=== PATIENT | female | born 1955 | race Caucasian/White ===

== ENCOUNTER 2024-02-20 09:51 | Day surgery (SDC) | payer MEDICARE ==
[2024-02-20] VITALS (9 sets, daily range): BP systolic 96–127; BP diastolic 60–84; PULSE 57–78; RESP 10–22; TEMP 98.2; O2SAT 94–98
[~2024-02-20] VITALS: Ht 162.6 cm; Wt 80.3 kg
[2024-02-20] MEDS ORDERED: diphenhydrAMINE 25mg capsule PO PRN (10:15)
[2024-02-20] MEDS ORDERED: CHOL20004 PO (10:19)
[2024-02-20] MEDS ORDERED: LISI1TAB49 PO (10:19)
[2024-02-20] MEDS ORDERED: ASPI-611 PO (10:19)
[2024-02-20] MEDS ORDERED: CITA20TA16 PO (10:19)
[2024-02-20] MEDS ORDERED: LEVO50TA8 PO (10:19)
[2024-02-20 10:55] LABS: BASOPHILS % (AUTO) 0.6 % (0-1); EOSINOPHILS # (AUTO) 0.2 X10'3 (0-0.9); EOSINOPHILS % (AUTO) 3.2 % (0-6); HEMATOCRIT 40.2 % (35.0-45.0); HEMOGLOBIN 13.8 g/dl (12.0-16.0); LYMPHOCYTES # (AUTO) 2.3 X10'3 (1.1-4.8); LYMPHOCYTES % (AUTO) 33.2 % (21-51); MEAN CORPUSCULAR HEMOGLOBIN 29.5 PG (27.0-31.0); MEAN CORPUSCULAR HGB CONC 34.3 g/dL (33.0-36.5); MEAN CORPUSCULAR VOLUME 86.2 FL (78-98); MEAN PLATELET VOLUME 7.4 FL (7.4-10.4); MONOCYTES # (AUTO) 0.5 X10'3 (0-0.9); MONOCYTES % (AUTO) 7.6 % (2-12); NEUTROPHILS # (AUTO) 3.8 X10'3 (1.8-7.7); NEUTROPHILS % (AUTO) 55.4 % (42-75); PLATELET COUNT 264 X10'3 (140-440); RED BLOOD COUNT 4.67 X10'6 (4.20-5.60); RED CELL DISTRIBUTION WIDTH 13.1 % (11.5-14.5); WHITE BLOOD COUNT 6.8 X10'3 (4.5-11.0)
[2024-02-20 11:05] LABS: ALBUMIN 3.7 G/DL (3.4-5.0); ANION GAP 9 (8-16); BLOOD UREA NITROGEN 15 MG/DL (7-18); BUN/CREATININE RATIO 25.9 (10.0-20.0); CALCIUM 9.3 MG/DL (8.5-10.1); CHLORIDE 105 MMOL/L (99-107); CREATININE 0.58 MG/DL (0.40-0.90); GLUCOSE 86 MG/DL (70-104); POTASSIUM 3.4 MMOL/L (3.5-5.1); SODIUM 141 MMOL/L (135-145); TOTAL CARBON DIOXIDE 26.9 MMOL/L (24-32); eCRCL 81 ML/MIN; eGFR > 90 ML/MIN
[2024-02-20 11:08] LABS: APTT 26 SECONDS (22-32); PROTHROMBIN TIME 10.9 SECONDS (9.0-12.0)
[2024-02-20] MEDS: normal saline 1,000 ML IV SCH (12:03)
[2024-02-20] MEDS: LORazepam 0.5 MG tablet PO PRN (12:03)
[2024-02-20] MEDS ORDERED: LIDOcaine 1% (10mg/ml) 2ml vial ONE (13:02)
[2024-02-20] MEDS ORDERED: fentaNYL/PF 50MCG/1 ML 2ML syringe ONE (13:02)
[2024-02-20] MEDS ORDERED: midazolam 1 mg/ML 2ml injection ONE (13:02)
[2024-02-20] MEDS ORDERED: verapamil 2.5 mg/ml inj IV ONE (13:02)
[2024-02-20] MEDS ORDERED: iohexol 350MG/ML 100ml bottle IV ONE (13:03)
[2024-02-20] MEDS ORDERED: heparin 1,000unit/ml 10ml vial 10 ML ONE (13:03)
[2024-02-20] MEDS ORDERED: nitroGLYCERIN 500mcg/5mL D5W 5 ML IV ONE (13:09)
[2024-02-20] MEDS ORDERED: potassium Cl 20 mEq SR tablet PO STA (13:44)
[2024-02-20] MEDS ORDERED: HYDROcodone/acetaminophen 10/325mg tab PO PRN (14:20)
[2024-02-20] MEDS ORDERED: HYDROcodone/acetaminophen 5mg/325mg tablet PO PRN (14:20)
== END 2024-02-20 16:10 | disposition home or self-care (01) ==
LOC: SSTAY O 09:51
PROVIDERS: ATTEND Internal Medicine Interventional Cardiology
DX: R94.39 Abnormal result of other cardiovascular function study (principal); I44.4 Left anterior fascicular block; I10 Essential (primary) hypertension; E03.9 Hypothyroidism, unspecified; Z79.82 Long term (current) use of aspirin; Z79.899 Other long term (current) drug therapy; Z88.8 Allergy status to other drugs, medicaments and biological substances; Z80.9 Family history of malignant neoplasm, unspecified
CPT/HCPCS: 36415; 80048; 85025; 85610; 85730; 93005; 93458; J1644; J2003; J2250; J3010; J3490; J7030; Q9967; 99152; C1769; C1894